=== PATIENT | female | born 1960 | race Caucasian/White ===

== ENCOUNTER → 2025-01-28 13:38 | Outpatient (REF) | payer OTHER, SELFPAY | LOC: HWRCS 13:38 | PROVIDERS: ATTENDING PHYSICIAN Internal Medicine Cardiovascular Disease; FAMILY PHYSICIAN Internal Medicine | DX: R94.31 Abnormal electrocardiogram [ECG] [EKG] (principal) | CPT/HCPCS: 93306 ==

== ENCOUNTER → 2025-02-07 07:25 | Outpatient (REF) | payer OTHER, SELFPAY | LOC: HWRCS 07:25 | PROVIDERS: ATTENDING PHYSICIAN Internal Medicine Cardiovascular Disease; FAMILY PHYSICIAN Internal Medicine | DX: R07.2 Precordial pain (principal); R93.1 Abnormal findings on diagnostic imaging of heart and coronary circulation; R94.31 Abnormal electrocardiogram [ECG] [EKG] | CPT/HCPCS: 78452; 93017; A9500 ==

== ENCOUNTER 2025-02-09 06:09 | Day surgery (SDC) | payer OTHER, SELFPAY ==
[2025-02-09] VITALS (17 sets, daily range): BP systolic 114–187; BP diastolic 67–102; BMI 23.4
[2025-02-09 07:30] LABS: Hematocrit 36.4 % (37.0-47.0); Hemoglobin 12.2 g/dL (12.0-16.0); Mean Corp Hgb Conc. 33.5 g/dL (33.0-37.0); Mean Corpuscular Volume 91.9 fL (81.0-99.0); Platelet Count 191 10^3/uL (130-400); Red Cell Dist. Width 12.8 % (11.5-14.5)
[2025-02-09] MEDS: NSS 200 ML IV (07:33)
[2025-02-09 07:58] LABS: Blood Urea Nitrogen 15 mg/dl (7-17); Calcium 9.0 mg/dl (8.4-10.2); Carbon Dioxide 27 mmol/L (22-30); Chloride 106 mmol/L (98-107); Estimated Creatinine Clearance 70 ml/min; Glucose 98 mg/dl (70-99); Potassium 4.2 mmol/L (3.5-5.1); Sodium 139 mmol/L (135-145); eGFR > 60.00
[2025-02-09 09:51] LABS: ACT-LR - POC 253 Seconds (116-155)
[2025-02-09 10:04] LABS: ACT-LR - POC 334 Seconds (116-155)
[2025-02-09 10:29] LABS: ACT-LR - POC 303 Seconds (116-155)
[2025-02-09] MEDS: LOPRESSOR 25 MG PO (11:48)
--- NOTE | 2025-02-09 12:57 | ITS.CL.CATH ---
Senior [employer] - Catheterization
Cardiac Catheterization
Procedure Report:
LEFT HEART CATH AND CORONARY INTERVENTION
Date of Procedure: February 09, 2025
Referring: Dr. Susihl Summers
PROCEDURES:
1. Left heart catheterization with coronary and single-plane left ventriculography
2. Successful stenting of proximal LAD with a 3.0 x 18 mm Luis stent that was postdilated distally with a 3.0 mm noncompliant balloon and proximally with a 3.75 mm noncompliant balloon
3. Intravascular ultrasound
INDICATION: This is a 64-year-old woman with no prior cardiac history who developed exertional arm discomfort leading to exercise stress imaging on 02/07/2025. She exercised on a standard Ed protocol for 11: 30 and achieved 12.5 METS of physical
activity, however, her electrocardiogram was notable for 1.[address] depression in leads II, III, aVF and V5-V6. Perfusion revealed a large severe partially reversible anteroseptal, apical and inferoseptal perfusion defect consistent with ischemia
for which she is now referred for coronary angiography.
ACCESS: Right radial artery, 6 [place] sheath
HEMODYNAMICS (mmHg):
AO (s/d, m) : 170/90, 122
LV (s/d) : 180/6
LVEDP : 19
CORONARY FINDINGS
Dominance: Right
LEFT MAIN: Normal
LEFT ANTERIOR DESCENDING: The LAD arises normally from the left main and runs in the anterior interventricular groove. There is a proximal 65% stenosis in the LAD and a 30% stenosis noted in the mid LAD beyond the only sizable diagonal branch. The
remainder of the LAD has minor irregularities and the distal vessel wraps completely around the apex.
CIRCUMFLEX: The circumflex is a moderate caliber nondominant vessel giving rise to a small OM1. Moderate caliber OM 2 and terminating in a small to moderate-sized posterolateral branch. Minor irregularities are noted.
RIGHT CORONARY: The right coronary artery is a dominant vessel that is widely patent. The PDA is a moderate caliber vessel that is widely patent
VENTRICULOGRAPHY: Left ventriculography is performed in an TAYLOR projection. The digital single-plane left ventricular ejection fraction is visually estimated at 60%
ANGIOPLASTY PROCEDURE DETAIL: Upon review of the diagnostic catheterization images and stress findings a decision was made to proceed with percutaneous revascularization of the proximal LAD stenosis. A 600 mg loading dose of clopidogrel was
administered prior to the interventional procedure. Intravenous heparin was given and the ACT was monitored throughout the procedure. The origin of the left main was cannulated with a 6 [place] EBU 3.5 guiding catheter and a short BMW guidewire was
advanced to the apical LAD wall long BMW guidewire was positioned in the distal circumflex given the proximal nature of atherosclerotic disease in the LAD.
Intravascular ultrasound was performed with a [place] [employer] IVUS catheter with a distal vessel measured approximately 3 mm in the more proximal vessel measured up to 3.75-4.0 mm. A 3.0 x 18 mm Luis stent was advanced over the guidewire and
position with angiographic and fluoroscopic guidance. The stent was implanted at nominal pressure and postdilated distally with a 3.0 mm noncompliant balloon and proximally with a 3.7 x 8 mm noncompliant balloon to 16 jabari with a nice angiographic
result
SEDATION: 80 minutes of procedural sedation was utilized. An independent medical claims manager was present to assist with and help manage the patient's level of consciousness and physiologic status
RADIATION SUMMARY: Fluoro Time (min): 10.8, Dose (mGy): 649, DAP (Gy.cm2) : 33
CONCLUSIONS
1. Successful stenting of proximal LAD with a 3.0 x 18 mm Confluence stent that was implanted at nominal pressures and postdilated distally with a 3.0 mm noncompliant balloon proximally with a 3.75 mm noncompliant balloon with a nice angiographic result
2. Preserved LV systolic function
RECOMMENDATIONS
1. Uninterrupted dual antiplatelet therapy for 6 to 12 months
2. High intensity statin
3. Monitor home blood pressures
Copy to: Dr. Sushil Summers
[2025-02-09] MEDS: NSS 1000 IV (13:00)
[2025-02-09] MEDS: TYLENOL 650 MG PO (14:38)
--- NOTE | 2025-02-09 14:48 | W.PN.UPDATE ---
Update Note
Progress Note Update
64 yo WF s/p PCI LAD (same day). She denies cp, sob, jocelyn diet, voiding, EKG SR, R rad site with some ecchymosis up forearm, good pulse. She will be on DAPT ASA/Plavix. We will increase atorvastatin to 80mg daily and add Metoprolol xl 25mg daily.
Activity restrictions reviewed. Cardiac rehab c/s. She will f/u [facility] at [facility] in 1 mo. She is for d/c home after 330p if rad site remains unchanged.
== END 2025-02-09 15:30 | disposition home or self-care (01) ==
LOC: CATH 06:09
PROVIDERS: ATTENDING PHYSICIAN Internal Medicine Interventional Cardiology; FAMILY PHYSICIAN Internal Medicine; OTHER PHYSICIAN Internal Medicine Cardiovascular Disease
DX: I25.10 Atherosclerotic heart disease of native coronary artery without angina pectoris (principal); Z79.82 Long term (current) use of aspirin; Z79.899 Other long term (current) drug therapy; Z79.890 Hormone replacement therapy; Z79.02 Long term (current) use of antithrombotics/antiplatelets
CPT/HCPCS: 92978; 99152; 99153; 80048; 85027; 85347; 93005; 93458; C1725; C1753; C1769; C1874; C9600; Q9967